=== PATIENT | male | born 1990 | race Two or more races ===

== ENCOUNTER 2016-08-17 14:12 | Emergency (ER) | payer MEDICAID ==
[~2016-08-17] VITALS: Ht 162.6 cm; Wt 63.5 kg
[2016-08-17 14:20] VITALS: BP 114/86
[2016-08-17] MEDS ORDERED: cefTRIAXone SOD 1,000 MG VL IM ONE (16:30)
[2016-08-17] MEDS ORDERED: IPRATROPIUM BROM 0.5 MG/2.5ML INH SOL NEB ONE (16:30)
[2016-08-17] MEDS ORDERED: ALBUTEROL SULF 2.5 MG/0.5ML(0.5%) NEB SOLN NEB ONE (16:30)
[2016-08-17] MEDS ORDERED: methylPREDNISolone SOD SUCC 125 MG/2 ML VL IM ONE (16:30)
== END 2016-08-17 18:00 | disposition home or self-care (01) ==
LOC: ER 14:26
DX: J45.909 Unspecified asthma, uncomplicated (principal); J20.9 Acute bronchitis, unspecified; F12.10 Cannabis abuse, uncomplicated
CPT/HCPCS: 71020; 94640; 96372; 99284; J0696; J2930

== ENCOUNTER 2019-09-15 20:49 | Emergency (ER) | payer MEDICAID ==
[~2019-09-15] VITALS: Ht 175.3 cm; Wt 69.1 kg
[2019-09-16] MEDS ORDERED: ACETAMINOPHEN 500 MG TAB PO ONE (00:15)
[2019-09-16] MEDS ORDERED: IBUPROFEN 800 MG TAB PO ONE (00:15)
[2019-09-16 00:52] VITALS: BP 107/69
== END 2019-09-16 01:15 | disposition home or self-care (01) ==
LOC: ER 20:49
DX: S62.316A Displaced fracture of base of fifth metacarpal bone, right hand, initial encounter for closed fracture (principal); W22.8XXA Striking against or struck by other objects, initial encounter; Y93.89 Activity, other specified; Y92.89 Other specified places as the place of occurrence of the external cause; Y99.8 Other external cause status
CPT/HCPCS: 29125; 73130

== ENCOUNTER 2024-04-28 01:18 | Emergency (ER) | payer MEDICAID ==
[~2024-04-28] VITALS: Ht 162.6 cm; Wt 63.6 kg
--- NOTE | 2024-04-28 02:40 | ED.PDOC ---
Back pain HPI HPI Comments C/C: LEFT THIGH PAIN S/P LIFTING A HEAVY ROCK AT WORK 3-4 WEEKS AGO. PATIENT STATES THAT HE HEARD A POP AND NOW THE PAIN HAS NOT GONE AWAY. ALL VSS. DENIES NUMBNESS, WEAKNESS OR ANY OTHER KNOWN INJURY. Chief Complaint: Lower Extremity Time Seen by MD: :22 Reviewed Notes: Nurses Notes, Medications, Allergies Allergies: Coded Allergies: NO KNOWN ALLERGIES (Unverified , 04/28/24) Information Source: Patient Mode of Arrival: Wheelchair Severity: Severe Quality: Sharp, Stabbing, Tearing Onset: Lifing Modifying Factors: No Movement, No Walking Past Medical History PAST MEDICAL HISTORY: Denies Surgical History: Denies all surgeries Family History Family History: Reviewed,noncontributory to illness, No family hx of Cancer, No family hx of DM, No family hx of Heart berny, No family hx of HTN, No family hx ofKidney berny, No family hx of Liver berny, No family hx of Lung berny, No family hx of Stroke Social History Smoker: Non-Smoker Alcohol: Denies ETOH Use Drugs: Marijuana Lives In: Home Constitutional: denies: chills, diaphoresis, fatigue, fever, malaise, sweats, weakness, others EENTM: denies: blurred vision, double vision, ear bleeding, ear discharge, ear drainage, ear pain, ear ringing, eye pain, eye redness, hearing loss, mouth pain, mouth swelling, nasal discharge, nose bleeding, nose congestion, nose pain, photophobia, tearing, throat pain, throat swelling, voice changes, others Respiratory: denies: cough, hemoptysis, orthopnea, SOB at rest, shortness of breath, SOB with excertion, stridor, wheezing, others Cardiovascular: denies: chest pain, dizzy spells, diaphoresis, Dyspnea on exertion, edema, irregular heart beat, left arm pain, lightheadedness, palpitations, PND, syncope, others Gastrointestinal: denies: abdomen distended, abdominal pain, blood streaked bowels, constipated, diarrhea, dysphagia, difficulty swallowing, hematemesis, melena, nausea, poor appetite, poor fluid intake, rectal bleeding, rectal pain, vomiting, others Genitourinary: denies: burning, dysuria, flank pain, frequency, hematuria, incontinence, penile discharge, penile sore, pain, testicle pain, testicle swelling, urgency, others Neurological: denies: dizziness, fainting, headache, left sided numbness, left sided weakness, numbness, paresthesia, pre-existing deficit, right sided numbness, right sided weakness, seizure, speech problems, tingling, tremors, weakness, others Musculoskeletal: reports: others (LABS POSTERIOR UPPER LEG PAIN); denies: back pain, gout, joint pain, joint swelling, muscle pain, muscle stiffness, neck pain Physical Exam General Appearance: No Apparent Distress, Normal HEENT: Pharynx Normal Neck: Full Range of Motion, Non-Tender, Normal, Normal Inspection Respiratory: Lungs Clear, No Respiratory Distress, Normal Breath Sounds Cardiovascular: No Edema, No Murmur, Normal Peripheral Pulses, Regular Rate/Rhythm Breast Exam: Deferred Gastrointestinal: Non Tender, Soft Genitalia: Deferred Pelvic: Deferred Rectal: Deferred Extremities: Normal capillary refill, Normal inspection, Normal range of motion, Non-tender, No pedal edema Musculoskeletal : Location: Left Extremity Location: Leg (POSTERIOR UPPER LEG MODERATE TENDERNESS ON PALPATION NO NOTED ABRASIONS, ECCHYMOSIS, EDEMA, LACERATIONS. MODERATE PAIN WITH WEIGHT-BEARING AND EXTEND HIS LEG. 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 Was a procedure done?: No Back Pain Differential Dx Differential Diagnosis: Fracture, Musculoskeletal Pain Other Differential Diagnosis HAMSTRING TEAR X-Ray, Labs, Meds, VS Vital Signs Date Time Temp Pulse Resp B/P (MAP) Pulse Ox O2 Delivery O2 Flow Rate FiO2 04/28/24 02:49 97.9 87 18 106/69 (81) 98 97.9 04/28/24 02:49 87 18 98 Room Air 04/28/24 01:48 97.9 85 20 113/78 (90) 99 Current Medications Medications (Trade) Dose Ordered Sig/Timothy Route Start Time Stop Time Status Last Admin Ketorolac Tromethamine (Toradol Injection) 60 mg ONCE ONCE IM 04/28/24 02:45 04/28/24 02:47 DC 04/28/24 02:43 Acetaminophen/ Hydrocodone Bitart ([place] 5/325MG Tab) 2 tab ONCE ONCE PO 04/28/24 02:45 04/28/24 02:47 DC 04/28/24 02:44 X-Ray, Labs, Meds, VS Comment CT LEFT FEMUR IMPRESSION: No acute fracture or dislocation. No osseous erosion. Radiopaque 5 mm metallic object in the quadriceps muscle approximately 6 cm from the top of the patella. Correlation with history is needed. No evidence of effusion. Soft tissues appear otherwise unremarkable. PATIENT STATES PAST HISTORY OF PELLETS IN HIS LEG. PATIENT WAS GIVEN TORADOL 60 MG IM NORCO 10 MG P.O. PLUS IMPROVEMENT IN PAIN AND FUNCTION ABLE TO AMBULATE WITHOUT DIFFICULTY REQUESTING DISCHARGE AT THIS TIME. SCRIPT MEDROL DOSEPAK AND TIZANIDINE. NO PROVIDED FOR WORK. FOLLOW UP WITH HIS PCP IN 1-2 DAYS CONSIDER MRI FOR CONTINUED SYMPTOMS.FOLLOW-UP WITH PCP IN 1 TO 2 DAYS. TAKE MEDICATIONS PRESCRIBED. RETURN TO ED FOR ANY NEW OR WORSENING SYMPTOMS. Time of 1ST Reevaluation: 03:41 Reevaluation 1ST: Improved Patient Education/Counseling: Diagnosis, Treatment, Prognosis, Need For Follow Up Family Education/Counseling: No Family Present Departure 1 Departure Time of Disposition: 03:41 Impression: Primary Impression: Left hamstring muscle strain Qualified Codes: S76.312A - Strain of muscle, fascia and tendon of the posterior muscle group at thigh level, left thigh, initial encounter Disposition: HOME / SELF CARE / HOMELESS Condition: Stable e-Prescriptions Methylprednisolone (Medrol Dosepak) 4 Mg Michael 4 MG PO UD for 6 Days, #21 TAB UAD Prov: ZANDER FREIRE 04/28/24 Tizanidine Hydrochloride (Tizanidine Hydrochloride) 4 Mg Tab 4 MG PO BID PRN for 5 Days, #10 TAB Prov: ZANDER FREIRE 04/28/24 Discharged With: Significant Other, Friend Critical Care Note Critical Care Time?: No Stability Stability form required: ZANDER Morin Apr 28, 2024 02:40
[2024-04-28] MEDS: KETOROLAC TROMETH 60MG/2ML VIAL IM ONE (02:43)
[2024-04-28] MEDS: HYDROcodone-ACET 5/325MG TAB PO ONE (02:44)
[2024-04-28 02:49] VITALS: BP 106/69; PULSE 87; RESP 18; TEMP 97.9; O2SAT 98
--- NOTE | 2024-04-28 03:23 | DVH ---
INDICATION: INJURY/SEVERE PAIN COMPARISON: None TECHNIQUE: CT of the left femur was performed without contrast. Volume transverse images were obtaine d and reconstructed in multiple planes using bone and soft tissue algorithms. All CT scans at this medical facility are performed using dose modulation techniques as appropriate t o a performed exam including the following: Automated exposure control was utilized; adjustment of th e MA and/or KV according to patient size; and use of iterative reconstruction technique. Radiation Dose Information: CT Dose: CTDI volume is 7.78 mGy. Dose-length product is 514.83 mGy*cm IMPRESSION: No acute fracture or dislocation. No osseous erosion. Radiopaque 5 mm metallic object in the quadric eps muscle approximately 6 cm from the top of the patella. Correlation with history is needed. No evidence of effusion. Soft tissues appear otherwise unremarkable.
[2024-04-28] MEDS ORDERED: TIZA10TA PO (03:39)
[2024-04-28] MEDS ORDERED: METH4PAK PO (03:39)
== END 2024-04-28 03:57 | disposition home or self-care (01) ==
LOC: ER 01:18
DX: S76.312A Strain of muscle, fascia and tendon of the posterior muscle group at thigh level, left thigh, initial encounter (principal); X50.0XXA Overexertion from strenuous movement or load, initial encounter; Y93.89 Activity, other specified; Y92.89 Other specified places as the place of occurrence of the external cause; Y99.0 Civilian activity done for income or pay
CPT/HCPCS: 73700; 96372; 99285; J1885

== ENCOUNTER 2025-02-09 19:17 | Emergency (ER) | payer SELFPAY ==
[~2025-02-09] VITALS: Ht 162.6 cm; Wt 55.6 kg
--- NOTE | 2025-02-09 19:50 | ED.PDOC ---
Musculoskeletal HPI Comments 34y M who presents to the ED for chief complaint of L leg pain. Pt states he has been having L leg pain while at work and had work injury when he lifted something heavy and states he tore his hamstring. Pt states injury in April 2023 and states he came to [facility] and had x-ray of leg done and states he was given pain meds and muscle relaxer and was discharged. Pt states since he has been going to PT and states he came today to get x-ray done to see if injury is getting better and he is able to get back to work. Pt in the ED, able to ambulate with steady gait. Pt denies any other symptoms at this time. Chief Complaint: Lower Extremity Time Seen by MD: 19:47 Reviewed Notes: Medications, Allergies Allergies: Coded Allergies: NO KNOWN ALLERGIES (Unverified , 04/28/24) Information Source: Patient Mode of Arrival: Ambulatory Brought in by: self Location: Left Extremity Location: Leg Past Medical History PAST MEDICAL HISTORY: Denies Surgical History: Denies all surgeries Family History Family History: Reviewed,noncontributory to illness, No family hx of Cancer, No family hx of DM, No family hx of Heart berny, No family hx of HTN, No family hx ofKidney berny, No family hx of Liver berny, No family hx of Lung berny, No family hx of Stroke Social History Smoker: Non-Smoker Alcohol: Denies ETOH Use Drugs: Marijuana Lives In: Home Constitutional: denies: chills, diaphoresis, fatigue, fever, malaise, sweats, weakness, others EENTM: denies: blurred vision, double vision, ear bleeding, ear discharge, ear drainage, ear pain, ear ringing, eye pain, eye redness, hearing loss, mouth pain, mouth swelling, nasal discharge, nose bleeding, nose congestion, nose pain, photophobia, tearing, throat pain, throat swelling, voice changes, others Respiratory: denies: cough, hemoptysis, orthopnea, SOB at rest, shortness of breath, SOB with excertion, stridor, wheezing, others Cardiovascular: denies: chest pain, dizzy spells, diaphoresis, Dyspnea on exertion, edema, irregular heart beat, left arm pain, lightheadedness, palpitations, PND, syncope, others Gastrointestinal: denies: abdomen distended, abdominal pain, blood streaked bowels, constipated, diarrhea, dysphagia, difficulty swallowing, hematemesis, melena, nausea, poor appetite, poor fluid intake, rectal bleeding, rectal pain, vomiting, others Genitourinary: denies: burning, dysuria, flank pain, frequency, hematuria, incontinence, penile discharge, penile sore, pain, testicle pain, testicle swelling, urgency, others Neurological: denies: dizziness, fainting, headache, left sided numbness, left sided weakness, numbness, paresthesia, pre-existing deficit, right sided numbness, right sided weakness, seizure, speech problems, tingling, tremors, weakness, others Musculoskeletal: reports: joint pain (L leg pain); denies: back pain, gout, joint swelling, muscle pain, muscle stiffness, neck pain, others Integumetry: denies: bruises, change in color, change in hair/nails, dryness, laceration, lesions, lumps, rash, wounds, others Allergic/Immunocompromised: denies: Difficulty Healing, Frequent Infections, Hives, Itching, others Hematologic/Lymphatic: denies: anemia, blood clots, easy bleeding, easy bruising, swollen glands, others Endocrine: denies: excessive hunger, excessive sweating, excessive thirst, excessive urination, flushing, intolerance to cold, intolerance to heat, unexpla ined weight gain, unexplained weight loss, others Psychiatric: denies: anxiety, bipolar disorder, depression, hopeless, panic disorder, schizophrenia, sleepless, suicidal, others All Other Systems: Reviewed and Negative Physical Exam General Appearance: No Apparent Distress, Normal HEENT: Normal ENT Inspection, Pharynx Normal, TMs Normal Neck: Full Range of Motion, Non-Tender, Normal, Normal Inspection Respiratory: Chest Non-Tender, Lungs Clear, No Accessory Muscle Use, No Respiratory Distress, Normal Breath Sounds Cardiovascular: No Edema, No JVD, No Murmur, No Gallop, Normal Peripheral Pulses, Regular Rate/Rhythm Breast Exam: Deferred Gastrointestinal: No Organomegaly, Non Tender, No Pulsatile Mass, Normal Bowel Sounds, Soft Genitalia: Deferred Pelvic: Deferred Rectal: Deferred Extremities: Tender (mild tenderness to lumbar spine ) Musculoskeletal : Apperance: Normal Neurologic: Alert, 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 Was a procedure done?: No Differential Diagnosis EXT Differential Diagnosis: Fracture, Sprain Other Differential Diagnosis DDD, lumbar radiculopathy, X-Ray, Labs, Meds, VS Vital Signs Date Time Temp Pulse Resp B/P (MAP) Pulse Ox O2 Delivery O2 Flow Rate FiO2 02/09/25 19:24 97.9 98 20 114/87 100 97.9 X-Ray, Labs, Meds, VS Comment Imaging was reviewed by this provider, there is no obvious pathological or acute disease process. Pending radiology review Labs were reviewed by this provider, no abnormalities Vital signs reviewed by this provider, clinically stable Time of 1ST Reevaluation: 18:20 Reevaluation 1ST: Unchanged Patient Education/Counseling: Diagnosis, Treatment, Need For Follow Up (Follow up with PCP next available appointment. Return to the emergency department if symptoms worsen.) Family Education/Counseling: No Family Present Departure 1 Departure Time of Disposition: 20:43 Impression: Primary Impression: Left hamstring muscle strain Qualified Codes: S76.312D - Strain of muscle, fascia and tendon of the posterior muscle group at thigh level, left thigh, subsequent encounter Disposition: HOME / SELF CARE / HOMELESS Condition: Stable e-Prescriptions Cyclobenzaprine Hcl (Cyclobenzaprine Hcl) 5 Mg Tab 1 TAB PO TID PRN, #30 TAB Prov: KRISTEN THOMPSON 02/09/25 Discharged With: Self Critical Care Note Critical Care Time?: No Stability Stability form required: No Heart Score Heart Score: Heart Score Response (Comments) Value History N/A 0 EKG N/A 0 Age N/A 0 Risk Factors N/A 0 Troponin N/A 0 Total 0 I personally scribed for KRISTEN THOMPSON ([email or web address]) on 02/09/25 at 19:50. Electronically submitted by Anshu VILLA). KRISTEN THOMPSON Feb 09, 2025 19:50
--- NOTE | 2025-02-09 20:13 | DVH ---
EXAM: XY LUMBAR SPINE 3 VIEW INDICATION: back pain TECHNIQUE: 2 views of the lumbar spine COMPARISON: None FINDINGS/IMPRESSION: No radiographic evidence of an acute osseous abnormality. There is no acute fracture, osseous malalignment, or aggressive focal osseous lesion. No endplate compression fracture, spondylolisthesis, or pars defect. Relative bony foraminal narrowing L5-S1
[2025-02-09] MEDS ORDERED: CYCL-837 PO (20:44)
[2025-02-09 21:09] VITALS: BP 120/72; PULSE 66; RESP 17; TEMP 97.6; O2SAT 99
== END 2025-02-09 21:13 | disposition home or self-care (01) ==
LOC: ER 19:20
DX: S76.312A Strain of muscle, fascia and tendon of the posterior muscle group at thigh level, left thigh, initial encounter (principal); F12.90 Cannabis use, unspecified, uncomplicated; X50.0XXA Overexertion from strenuous movement or load, initial encounter; Y93.89 Activity, other specified; Y92.89 Other specified places as the place of occurrence of the external cause; Y99.8 Other external cause status
CPT/HCPCS: 72100